=== PATIENT | female | born 1945 | race Caucasian/White ===

== ENCOUNTER 2021-08-28 10:12 | Emergency (ER) | payer MEDICARE ==
[~2021-08-28] VITALS: Ht 157.5 cm; Wt 66.2 kg
--- NOTE | 2021-08-28 10:15 | NUR ---
BIBA TAKEN TO BED 2
[2021-08-28 10:19] VITALS: BP 164/86
--- NOTE | 2021-08-28 10:25 | NUR ---
76 Y/O FEMALE BIB A FROM HOME C/O ABD PAIN 01/27 DESCRIBES CRAMPING [id number]. PT STATES SHE HAS CHRONIC PAIN FROM GASTRITIS AND SYMPTOMS FEEL SIMILAR. DENIES FEVER/CHILLS. DENIES N/V/D. PMH: GASTRITIS, DM NKA
--- NOTE | 2021-08-28 10:48 | NUR ---
DR. SHRESTHA AT PT BEDSIDE FOR FURTHER EVALUATION.
--- NOTE | 2021-08-28 10:59 | NUR ---
SPOKE WITH PT SON BRANDON FOR DECISION ON FURTHER CARE. WILL CALL BACK.
[2021-08-28 12:11] VITALS: BP 160/75
--- NOTE | 2021-08-28 12:11 | NUR ---
SON CALLED FOR [employer] HIS MOM, ETA 10 MINS
--- NOTE | 2021-08-28 12:12 | NUR ---
Patient discharged with v/s stable. Written and verbal after care instructions given and explained. Patient alert, oriented and verbalized understanding of instructions. Wheel Chair Assisted with to car. All questions addressed prior to discharge. ID band removed. Patient advised to follow up with PMD.NO Rx given. Patient educated on indication of medication including possible reaction and side effects. Opportunity to ask questions provided and answered.
== END 2021-08-28 12:11 | disposition home or self-care (01) ==
LOC: MED 10:12
DX: G89.29 Other chronic pain (principal); R10.9 Unspecified abdominal pain; I10 Essential (primary) hypertension
CPT/HCPCS: 99281